=== PATIENT | female | born 1995 | race Two or more races ===

== ENCOUNTER 2022-06-17 19:31 | Emergency (ER) | payer OTHER ==
[~2022-06-17] VITALS: Ht 152.4 cm; Wt 57.0 kg
[2022-06-17] MEDS ORDERED: LORazepam 0.5 MG TAB PO ONE (20:00)
[2022-06-17 20:25] LABS: Basophils # (auto) 0.1 10 ^3/uL (0-0.2); Basophils % (auto) 0.6 % (0.0-2.0); Eosinophils # (auto) 0 10 ^3/uL (0-0.8); Eosinophils % (auto) 0.3 % (0.0-7.0); Lymphocytes # (auto) 1.6 10 ^3/uL (0.4-5.4); Mean Corpuscular Hemoglobin 24.4 pg (28.0-32.0); Neutrophils % (auto) 71.1 % (37.0-80.0)
[2022-06-17 20:26] LABS: Hemoglobin 13.8 g/dL (12.2-16.2); Lymphocytes % (auto) 18.7 % (10.0-50.0); Mean Corpuscular Hgb Conc. 32.1 g/dL (32.0-36.0); Mean Corpuscular Volume 75.9 fL (80.0-100.0); Monocytes # (auto) 0.8 10 ^3/uL (0-1.3); Monocytes % (auto) 9.3 % (0.0-12.0); Neutrophils # (auto) 6.1 10 ^3/uL (1.6-8.6); Nucleated Red Blood Cells % 0.1 %; Red Blood Cells 5.66 10^6/uL (4.0-5.20); White Blood Cell 8.6 10^3/uL (4.4-10.8)
[2022-06-17 20:39] LABS: INR 1.13 (0.9-1.15); Partial Thromboplastin Time 24.6 sec (24.6-33.4)
[2022-06-17 20:46] LABS: Albumin 4.5 g/dL (3.4-5.0); Magnesium 1.7 mg/dL (1.6-2.6); Potassium 3.1 mmol/L (3.5-5.1)
[2022-06-17 20:49] LABS: BUN/Creatinine Ratio 9.5; Bilirubin, Total 1.7 mg/dL (0.2-1.0)
[2022-06-17 21:04] LABS: Urine Bacteria NONE SEEN /hpf (None Seen); Urine Blood 2+ /uL (Negative); Urine Mucus FEW (None Seen); Urine Specific Gravity 1.029 (1.001-1.035); Urine WBC 5 /hpf (0 - 5)
[2022-06-17 21:15] LABS: Alcohol, Urine < 3.0 mg/dL (0-10); Amphetamine Screen, Urine NEGATIVE (NEGATIVE); Barbiturate Scree,Urine NEGATIVE (NEGATIVE); Benzodiazephine Screen, Urine NEGATIVE (NEGATIVE); Cannabinoid Screen, Urine NEGATIVE (NEGATIVE); Cocaine Screen, Urine POSITIVE (NEGATIVE); Opiate Scree,Urine NEGATIVE (NEGATIVE); Phencyclidine Screen, Urine NEGATIVE (NEGATIVE)
[2022-06-18] MEDS ORDERED: cefTRIAXone SOD 1,000 MG VL IM ONE (04:30)
[2022-06-18] MEDS ORDERED: POTASSIUM CHL 20 Meq TABLET PO ONE (05:15)
[2022-06-18 05:35] VITALS: BP 120/95
== END 2022-06-18 05:46 | disposition home or self-care (01) ==
LOC: ER 19:31
DX: R07.89 Other chest pain (principal); N39.0 Urinary tract infection, site not specified
CPT/HCPCS: 36415; 71045; 80053; 80307; 81001; 81025; 83735; 83880; 84484; 85025; 85379; 85610; 85730; 93005; 96372; 99285; J0696

== ENCOUNTER 2023-05-02 03:11 | Emergency (ER) | payer OTHER ==
[~2023-05-02] VITALS: Ht 160 cm; Wt 120.0 kg
[2023-05-02] MEDS ORDERED: LORazepam 2MG/ML-1ML VIAL IV ONE (03:30)
[2023-05-02 05:46] LABS: Urine Bacteria NONE SEEN /hpf (None Seen); Urine Blood 3+ /uL (Negative); Urine Clarity Clear (Clear); Urine Color Yellow (Yellow); Urine Mucus FEW (None Seen); Urine Protein, UAD 1+ (Negative); Urine Specific Gravity 1.018 (1.001-1.035); Urine Urobilinogen Normal (Negative); Urine WBC 15 /hpf (0 - 5); Urine pH 8.5 (5.0-8.0)
[2023-05-02] MEDS ORDERED: SODIUM CHLORIDE 0.9% 500 ML IVB ONE (06:45)
[2023-05-02 07:08] LABS: Eosinophils # (auto) 0 10 ^3/uL (0-0.8); Hemoglobin 12.1 g/dL (12.2-16.2); Mean Corpuscular Hemoglobin 25.1 pg (28.0-32.0); Monocytes # (auto) 0.8 10 ^3/uL (0-1.3); Red Blood Cells 4.81 10^6/uL (4.0-5.20); White Blood Cell 15.2 10^3/uL (4.4-10.8)
[2023-05-02 07:09] LABS: Basophils # (auto) 0.1 10 ^3/uL (0-0.2); Basophils % (auto) 0.4 % (0.0-2.0); Hematocrit 37.1 % (36.0-46.0); Lymphocytes # (auto) 0.6 10 ^3/uL (0.4-5.4); Mean Corpuscular Hgb Conc. 32.5 g/dL (32.0-36.0); Mean Corpuscular Volume 77.3 fL (80.0-100.0); Monocytes % (auto) 5.5 % (0.0-12.0); Neutrophils # (auto) 13.7 10 ^3/uL (1.6-8.6); Neutrophils % (auto) 90.1 % (37.0-80.0); Red Cell Distribution Width 15.5 % (11.8-14.3)
[2023-05-02] MEDS ORDERED: ACETAMINOPHEN 650 mg PER 20.3 mL UD PO ONE (07:15)
[2023-05-02 07:28] LABS: Albumin 4.1 g/dL (3.4-5.0); Calcium 9.1 mg/dL (8.5-10.1); Magnesium 2.2 mg/dL (1.6-2.6); Potassium 3.5 mmol/L (3.5-5.1)
[2023-05-02 07:56] LABS: BUN/Creatinine Ratio 11.3 (10.0-20.0)
[2023-05-02 07:57] LABS: Bilirubin, Total 1.3 mg/dL (0.2-1.0); Total Protein 8.6 g/dL (6.4-8.2)
[2023-05-02 10:12] LABS: Rapid Influenza A Negative (Negative); Rapid Influenza B Negative (Negative)
[2023-05-02 10:20] LABS: Rapid Strep A Screen-Throat Positive
[2023-05-02] MEDS ORDERED: CYCL-839 PO (11:44)
[2023-05-02] MEDS ORDERED: NAP500T PO (11:44)
[2023-05-02] MEDS ORDERED: CEFD300C2 PO (11:44)
[2023-05-02] MEDS ORDERED: cefTRIAXone 1GM/50ML D5W 50 ML IV ONE (11:45)
[2023-05-02 12:01] VITALS: BP 122/85; PULSE 86; RESP 15; TEMP 97.8; O2SAT 99
== END 2023-05-02 12:33 | disposition home or self-care (01) ==
LOC: ER 03:11 → EDBD 03:11 → ER 12:30
DX: J02.0 Streptococcal pharyngitis (principal); M79.10 Myalgia, unspecified site; R10.2 Pelvic and perineal pain; R07.89 Other chest pain
CPT/HCPCS: 36415; 71046; 80053; 81001; 83735; 84702; 85025; 87804; 87880; 96361; 96365; 96375; 99284; J0696; J2060